=== PATIENT | male | born 1950 | race Caucasian/White ===

== ENCOUNTER → 2017-10-08 | Outpatient (REF) | payer MEDICARE ==
[2017-10-08 13:27] LABS: FOLATE 18.3 NG/ML; VITAMIN B12 LEVEL 357 PG/ML
[2017-10-14 00:07] LABS: VITAMIN B1 LEVEL WHOLE BLOOD 136.7 nmol/L (66.5-200.0); VITAMIN B6,PYRIDOXAL PHOSPHATE 10.7 ug/L (5.3-46.7); VITAMIN E(ALPHA TOCOPHEROL) 13.3 mg/L (9.0-29.0)
== END ==
LOC: M LABNEURO 09:47
DX: E53.8 Deficiency of other specified B group vitamins (principal); E51.9 Thiamine deficiency, unspecified; E03.9 Hypothyroidism, unspecified
CPT/HCPCS: 82746

== ENCOUNTER → 2020-08-30 | Outpatient (CLI) | payer MEDICARE ==
[~2020-08-30] MED LIST: PROHANCE 279.3MG/ML 15ML VIAL As Ordered ONE; PROHANCE 279.3MG/ML 5ML VIAL As Ordered ONE
--- NOTE | 2020-08-30 15:37 | REP ---
INDICATION: ABN IMAG LIVER BILIARY TRACT. COMPARISON: Comparison MRI study is from December 09, 2019. Comparison outside CT study November 12, 2019.. TECHNIQUE: Axial and coronal T1 and T2 weighted scans include spin echo, fast spin echo, gradient echo, in and out of phase, diffusion, and dynamically acquired sequential postcontrast images. Gadolinium enhancement dose is 18 mL of intravenous ProHance. FINDINGS: Patient's known abdominal aortic aneurysm is again seen status post aorto bi iliac stent graft placement. The aneurysm measures 7.0 x 7.1 cm in greatest anteroposterior by transverse dimension today. Previously on CT study, these dimensions are 7.2 x 7.0 cm. The aneurysm is felt to be unchanged in size. Bilateral fat containing adrenal adenomas are again seen with prominent signal loss on out of phase images and unchanged in size. There is no evidence of pleural effusion or abdominal ascites. No abnormality is noted in the gallbladder lumen or in the pancreas. The spleen is normal in size homogeneous in texture. No abnormality is noted on diffusion-weighted scans. There is a small cyst in the lower pole the right kidney measuring 1.5 cm in diameter. In the liver, T2 weighted scans demonstrate 3 or 4 tiny subcentimeter cysts in the right lobe. No focal hepatic mass lesion is seen on precontrast T2 or pre contrast T1 weighted images. On dynamically acquired sequential postcontrast images there are somewhat nodular appearing hypervascular areas in the right lobe and left lobe on the initial arterial phase study. The largest of these areas is inferiorly position in the right lobe measuring 1.7 cm in diameter. This is unchanged from the comparison study. This is the largest areas seen on the prior CT study. These are no longer apparent on 2 and 3 minutes post injection images. No new hypervascular lesion is appreciated. Study is otherwise unremarkable. IMPRESSION: Stable MRI findings with bilateral adrenal adenomas, a small right renal cyst, and hypervascular liver lesions all unchanged from prior study November 12, 2019 and December 09, 2019. Aorto bi-iliac stent graft placement for abdominal aortic aneurysm 7.0 x 7.1 cm in transverse dimension. This is also unchanged. <Electronically signed by Epifanio Olmedo > 08/30/20 [id number]
== END ==
LOC: M RAD 11:11
PROVIDERS: ATTEND Internal Medicine Medical Oncology
DX: D35.00 Benign neoplasm of unspecified adrenal gland (principal); N28.1 Cyst of kidney, acquired; K76.89 Other specified diseases of liver; I71.4 Abdominal aortic aneurysm, without rupture; Z95.828 Presence of other vascular implants and grafts
CPT/HCPCS: 74183; A9576

== ENCOUNTER → 2020-11-20 | Outpatient (CLI) | payer MEDICARE ==
[~2020-11-20] MED LIST changes: +AMLO1TAB25; +ATOR1TAB21; +CLOP75TA2; +OMEP-218; -PROHANCE 279.3MG/ML 15ML VIAL As Ordered ONE; -PROHANCE 279.3MG/ML 5ML VIAL As Ordered ONE
== END ==
LOC: M LABSMTC 09:48
PROVIDERS: ATTEND Anesthesiology
DX: Z01.818 Encounter for other preprocedural examination (principal); Z11.52 Encounter for screening for COVID-19

== ENCOUNTER 2020-11-24 08:46 | Day surgery (SDC) | payer MEDICARE ==
[~2020-11-24] VITALS: Ht 182.9 cm; Wt 85.2 kg
[~2020-11-24 08:46] MED LIST changes: +BSS IRR 500ML/OMIDRIA 4ML IRR BAG (OR ONLY) As Ordered ONE; +BUPIVACAINE HCL 0.5% 10ML VIAL As Ordered ONE; +CEFUROXIME 1MG/0.1ML INTRACAMERAL INJ As Ordered ONE; +DUOVISC (0.50ML VISCOAT/0.85ML PROVISC) OPHTH KIT As Ordered ONE; +LIDOCAINE 1% SDV 5ML VIAL As Ordered ONE; +PROPARACAINE 0.5% OPHTH SOL 15ML OD ONE
[2020-11-24] MEDS: TROPICAMIDE 1% OPHTH SOLN 2ML OD SCH ×3 (09:14→09:21)
[2020-11-24] MEDS: PHENYLEPHRINE 2.5% OPHTH SOL 2ML OD SCH ×3 (09:14→09:21)
[2020-11-24] MEDS: OFLOXACIN 0.3 % (OCUFLOX) OPTH SOL 5ML OD SCH ×3 (09:14→09:20)
[2020-11-24] MEDS ORDERED: MIDAZOLAM INJ 2MG/2ML VIAL (J2250 PER 1MG) As Ordered ONE (09:38)
[2020-11-24] MEDS ORDERED: PHENYLEPHRINE 1.5%/LIDOCAINE 1% INTRAOCULAR 0.8ML SYRINGE As Ordered ONE (10:39)
[2020-11-24 10:57] VITALS: BP 127/71
--- NOTE | 2020-11-28 19:14 | RO ---
OPERATIVE NOTE DATE OF OPERATION: 11/24/2020 PREOPERATIVE DIAGNOSIS: Visually significant cataract, right eye. POSTOPERATIVE DIAGNOSIS: Visually significant cataract, right eye. PROCEDURE: Phacoemulsification, cataract extraction and implantation of intraocular lens, right eye. SURGEON: Oscar Garcia M.D. ANESTHESIA: MAC and topical. COMPLICATIONS: None. ESTIMATED BLOOD LOSS: 0 mL. CONDITION: Excellent to recovery room with shield over right eye. LENS: AcrySof model SN60AT, power 21.0 diopters. [employer] energy is 5.93 CDE. INDICATIONS FOR PROCEDURE: The patient experienced decreased vision in the right eye associated with cataract formation and this was confirmed on slit-lamp exam. Informed consent was obtained for the above procedures. PROCEDURE NOTE: Prior to entering the operating room, the patient was identified. The right eye was marked. He was wheeled supine to the OR suite positioned on a stretcher. Anesthesia was initiated. Topical Tetracaine was placed. He was prepped with 5% povidone iodine to lids, lashes and periocular face. The lashes were taped with Tegaderm. A speculum was placed in the right eye. A 1 mm side port was created at the 11:30 position. 1% preservative free lidocaine was injected. Viscoat was injected. A 2.6 mm stepped, grooved clear corneal incision was made temporally. A bent cystitome needle and Utrata forceps fashioned a continuous curvilinear capsulorhexis. BSS was used to hydrodissect. The lens was found to rotate freely. It was phacoemulsified using [id number] technique. Residual cortex was removed with the IA. Provisc was injected to expand the capsular bag. The lens was injected using lens delivery system and positioned with the Kelvin hook. Residual viscoelastic was removed with the IA. BSS was used to hydrate the clear corneal wound. Antibiotic prophylaxis was injected. The speculum was removed from the eye. A shield was taped over the eye. The patient was taken in excellent condition to the recovery room.
== END 2020-11-24 11:10 | disposition home or self-care (01) ==
LOC: M SDC 08:46
PROVIDERS: ATTEND Ophthalmology
DX: H25.11 Age-related nuclear cataract, right eye (principal); I10 Essential (primary) hypertension; I71.4 Abdominal aortic aneurysm, without rupture; E78.5 Hyperlipidemia, unspecified; J44.9 Chronic obstructive pulmonary disease, unspecified; Z79.899 Other long term (current) drug therapy; F17.290 Nicotine dependence, other tobacco product, uncomplicated
CPT/HCPCS: 66984; J1097; J2250; V2632

== ENCOUNTER → 2020-12-18 | Outpatient (CLI) | payer MEDICARE ==
[~2020-12-18] MED LIST changes: -AMLO1TAB25; +AMLO1TAB25 PO; -ATOR1TAB21; +ATOR1TAB21 PO; -BSS IRR 500ML/OMIDRIA 4ML IRR BAG (OR ONLY) As Ordered ONE; -BUPIVACAINE HCL 0.5% 10ML VIAL As Ordered ONE; -CEFUROXIME 1MG/0.1ML INTRACAMERAL INJ As Ordered ONE; -CLOP75TA2; +CLOP75TA2 PO; -DUOVISC (0.50ML VISCOAT/0.85ML PROVISC) OPHTH KIT As Ordered ONE; -LIDOCAINE 1% SDV 5ML VIAL As Ordered ONE; -OMEP-218; +OMEP-218 PO; -PROPARACAINE 0.5% OPHTH SOL 15ML OD ONE
== END ==
LOC: M LABSMTC 09:34
PROVIDERS: ATTEND Anesthesiology
DX: Z01.812 Encounter for preprocedural laboratory examination (principal); Z20.822 Contact with and (suspected) exposure to COVID-19

== ENCOUNTER 2020-12-22 07:36 | Day surgery (SDC) | payer MEDICARE ==
[~2020-12-22] VITALS: Ht 182.9 cm; Wt 84.4 kg
[~2020-12-22 07:36] MED LIST changes: +BSS IRR 500ML/OMIDRIA 4ML IRR BAG (OR ONLY) As Ordered ONE; +CEFUROXIME 1MG/0.1ML INTRACAMERAL INJ As Ordered ONE; +DUOVISC (0.50ML VISCOAT/0.85ML PROVISC) OPHTH KIT As Ordered ONE; +MIDAZOLAM INJ 2MG/2ML VIAL (J2250 PER 1MG) As Ordered ONE; +PHENYLEPHRINE 1.5%/LIDOCAINE 1% INTRAOCULAR 0.8ML SYRINGE As Ordered ONE; +PROPARACAINE 0.5% OPHTH SOL 15ML OS ONE; +fentaNYL 100 MCG/2 ML INJECTION (J3010) As Ordered ONE
--- OUTSIDE RECORDS SUMMARY | 2020-12-22 07:40 | CCD | Clinical Summary ---
Author Author Local Voice [facility] Organization [facility] Address [address] [place] [address] Phone Care Team Providers Care Alteration Specialist Name Role Phone Parrish YI, Dk PP [phone] Reason for Referral Date Encounter Description Provider Reason for Referral 11/14/20 Dk YI Request Consul tation By Specialist Reason for Visit and Chief Complaint The Chief Complaint is: pt amb to room 21 for pre op clearence. pt advises no c oncerns at this time. Sunil MALLOY Problems Includes: Problems addressed during this encounter and other active Problems Current Visit Onset Date - Time Resolved Date - Time Provider C ondition Status Cataract - Senile 11/14/2020 - 12:00AM Dk Mcmahan Active Nicotine Dependence 07/18/2020 - 2:28PM Loren Osman Active Note: continues to smoke 3-4 cigars/daily 07/18/20; quit smoking cigs 2019 after smoking >30 years Peripheral Vascular Disease 01/05/2020 - 12:00AM Amy Thurman DO Active Note: s/p right fem/pop bypa ss 12/14/19 Obesity 12/02/2018 - 12:00AM Loren Thurman DO Acti ve Vascular Dementia 07/14/2018 - 12:00AM Madina Mcmahan Active Note: possible vascular petra ntia vs. ETOH induced cognitive impairmentseen by Neurology, Dr. 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 8 - 12:00AM Loren L Ray DO Active Hyperlipidemia 05/02/2017 - 12:00AM Loren L Ray DO Ac tive Nicotine Dependence 03/19/2017 - 12:00AM Unknown - Unknown Loren L Ray DO Resolved Hypertension (Systemic) 03/19/2017 - 12:00AM Loren L Ray DO Active Alcohol Dependence (Alcoholism) 03/19/2017 - 12:00AM A phyllis L Ray DO Active Note: 1-2 beers 1 or 2 times / week; 06/18/19 Past Visits Onset Date - Time Resolved Date - Time Provider Co ndition Status Difficulty Breathing (Dyspnea) 07/18/2020 - 3:01PM [place] nda L Ray DO Active Retinopathy Proliferative 05/29/2020 - 1:07PM Madina Cramer PICTURE FRAMER Active Note: right eye; following w ith Opthamology Retinal Detachment 05/29/2020 - 1:05PM Loren L Ray DO Active Note: with PVR; right eye; s /p vitrectomy 05/31/20 Visit For: Screening Malignant Neoplasm Respiratory 12/07/2019 - 12:00AM Loren L Ray DO Active Note: refused low dose CT sc an 12/07/19; refused low dose CT 07/18/20 Polyps Colon 05/13/2018 - 12:00AM Madina Cramer PICTURE FRAMER Act flakito Note: Repeat colonoscopy 07/02 022 Arthralgia - Pelvis / Hip / Femur Right 05/13/2018 - 12:00AM Loren L Ray DO Active Acute Renal Failure 12/16/2017 - 12:00AM Loren L Ray DO Active Vasovagal Syncope 12/16/2017 - 12:00AM Loren L Ray DO Active Note: on 12/14/17 20 min aft er bee sting Hearing Loss 11/12/2017 - 12:00AM Loren L Ray DO Acti ve Note: has appt to see audiol ogy Aortic Stenosis 10/07/2017 - 12:00AM Loren L Ray DO A ctive Note: mild on ECHO 10/06/17 Stroke - Lacunar Syndrome Multiple Infarcts 08/28/2017 - 12:00AM Loren L Ray DO Active Note: one in left basal gang aleyda; see MRI from 08/27/17 Urinary Retention 08/28/2017 - 12:00AM Loren L Ray DO Active Carotid Artery Stenosis Without Cerebral Infarction 08/06/2017 - 12:00AM Loren L Ray DO Active Note: less than 50% bilatera lly on doppler 08/11/17 Anemia 07/31/2017 - 12:00AM Loren L Ray DO Acti ve Atherosclerosis Renal Artery 07/22/2017 - 12:00AM [place] Ray DO Active Note: s/p angioplasty w/ bozena nt placement right renal artery 06/21/17 Colon Screening 05/02/2017 - 12:00AM Loren L Ray DO A ctive Note: last colonoscopy , needs repeat in 3 years Aneurysm of Abdominal Aorta Without Rupture 03/19/2017 - 12:00AM Loren L Ray DO Active Note: 6.6cm with noted leak s/p endovascular repair; suppose to follow-up with Dr. Ramos on 03/28/17 Aneurysm of Iliac Artery 03/19/2017 - 12:00AM Loren L Ray DO Active Note: s/p bilateral endovasc ular repair Plan of Treatment Future Appointments Date Time Location Provider [facility] 12/04/2020 2:40PM [facility] Dkdidi YI Chronic Disease Follow-up 05/16/2021 9:40AM [facility] Dkdidi CRANDALLP - Instructions for patient Continue with current medications Once labs come back letter will be sent to surgeon for preop clearance f/u in 6 months for chronic issues - Return to the clinic if condition wors ens or new symptoms arise Assessments Includes: Assessments from this encounter - Visit for: preoperative exam - Senile cataract - Hypertension - Peripheral vascular disease - Chronic obstructive pulmonary disease - Hyperlipidemia - Obesity - Adrenal cortical adenoma - Vascular dementia Memory is currently stable and patient is no longer seeing neurology - Late effects of cerebral infarction: c ognitive deficits - Alcoholism - Nicotine dependence Instructions Includes: Instructions from this encounter Instructions to patient Instructions for patient ~Continue with current medications ~Once labs come back letter will be sent to surgeon for preop clearance ~f/u in 6 months for chronic issues Education and Decision Aids were provide d during visit for: Patient education and counseling provid ed for chronic care goals and plan Patient appeared to understand therapeut ic regimen for Medications and Plan of Care; Assessed using Teach-back Method Medical Equipment - Implanted Devices Includes: Current DevicesNo Medical Equipment Recorded Medications Includes: Medications discussed during this encounter and other current Medicati ons Discontinued / Stopped on this date Rio Gilbert DO on 07/18/2020 Lipitor 20 MG Oral Tablet Provider: Loren Thurman DO Diagnosis: Thiamine Mononitrate 100 MG Oral Tablet Provider: Diagnosis: Folic Acid 1 MG Oral Tablet Provider: Diagnosis: [facility] Vitamin B12 1000MCG Oral Tablet Prov ider: Diagnosis: Current Medications (continue as prescribed) Atorvastatin Calcium 20 MG Oral Tablet 10/31/2020 P rovider: Diagnosis: Omeprazole 20 MG Oral Capsule Delayed Release 10/16/2020 - 0 04/14/2021 Provider: Dk YI Diagnosis: once a day amLODIPine Besylate 10 MG Oral Tablet 06/21/2020 - Provider: Loren Thurman DO Diagnosis: once a day Clopidogrel Bisulfate 75 MG Oral Tablet 05/22/2020 - 021 Provider: Madina Cramer NP Diagnosis: once a day Colace 100 MG Oral Capsule 12/23/2019 Provider: Diagnosis: Ventolin HFA 108 (90 Base)MCG/ACT Inhalation Aerosol Solutio n 12/16/2017 Provider: Diagnosis: [facility] Iron 325 (65 Fe)MG Oral Tablet 08/06/2017 Provi richard: Loren Thurman DO Diagnosis: Anemia, unspecified twice a day Daily Multiple Vitamins Oral Tablet 03/19/2017 Prov ider: Diagnosis: Medications Administered Includes: Administered Medications from this encounterNo Administered Medications Recorded Vital Signs Includes: Vital Signs from this encounter Vital Name 11/14/2020 11:24A Blood Pressure Sitting L 120/76 BP Cuff Size Regular Pulse Rate-Sitting (bpm) 96 Pulse Rhythm Regular Respiration Rate (breaths/min) 22 Temp-Temporal 98.1 Weight (lb) 192 Pain Level 3 Oxygen Saturation (%) 97 Flow Rate (l/min) (None (Room Air)) FiO2 (%) 21 Results Includes: Results discussed during this encounter CBC w/ Auto Diff [facility] Ordered by Dk YI on 11/14/[address] [place] [address], [address] Collected: 11/15/2020 Reported: 11/15/2020 13:27 tel :[phone] BASO # (AUTO) 0.09 10\^3/uL (0.00-0.20) N (Normal) Note: Responsible Observer: BASO # (AUTO ) BASO # (AUTO) 100.1500 (A) BASO % (AUTO) 1.1 % (0.0-2.0) N (Normal) Note: Responsible Observer: BASO % (AUTO ) BASO % (AUTO) 100.1250 (A) EOS # (AUTO) 0.09 10\^3/uL (0.00-1.10) N (Normal) Note: Responsible Observer: EOS # (AUTO) EOS # (AUTO) 100.1450 (A) EOS % (AUTO) 1.1 % (0.0-11.0) N (Normal) Note: Responsible Observer: EOS % (AUTO) EOS % (AUTO) 100.1200 (A) GRAN # (AUTO) 5.23 10\^3/uL (1.50-6.50) N (Normal) Note: Responsible Observer: GRAN # (AUTO ) GRAN #(AUTO) 100.1325 (A) GRAN % (AUTO) 65.2 % (42.0-75.0) N (Normal) Note: Responsible Observer: GRAN % (AUTO ) GRAN % (AUTO) 100.1000 (A) HEMATOCRIT 44.8 % (41.0-53.0) N (Normal) Note: Responsible Observer: HCT HEMATOCR IT 100.0400 (A) HEMOGLOBIN 15.3 G/DL (13.0-17.5) N (Normal) Note: Responsible Observer: HGB HEMOGLOB IN 100.0300 (A) IG # (AUTO) 0.0 10\^3/uL (<0.5) None Note: Responsible Observer: IG # (AUTO) IG # (AUTO) 100.1260 (A) IG % (AUTO) 0.4 % (1.00-5.00) None Note: Responsible Observer: IG % (AUTO) IG % (AUTO) 100.1255 (A) LYMPH # (AUTO) 1.7 k/uL (1.0-5.0) N (Normal) Note: Responsible Observer: LYMPH # (AUT O) LYMPH # (AUTO) 100.1350 (A) LYMPH % (AUTO) 21.5 % (20.0-51.0) N (Normal) Note: Responsible Observer: LYMPH % (AUT O) LYMPH % (AUTO) 100.1100 (A) MCH 30.7 PG (27.0-34.0) N (Normal) Note: Responsible Observer: MCH MCH 100 .0600 (A) MCHC 34.2 G/DL (32-36) N (Normal) Note: Responsible Observer: MCHC MCHC 1 00.0650 (A) MCV 90.0 FL (80.0-100.0) N (Normal) Note: Responsible Observer: MCV MCV 100 .0550 (A) MONO # (AUTO) 0.86 k/uL (0.20-1.50) N (Normal) Note: Responsible Observer: MONO # (AUTO ) MONO # (AUTO) 100.1400 (A) MONO % (AUTO) 10.7 % (2.0-15.0) N (Normal) Note: Responsible Observer: MONO % (AUTO ) MONO% (AUTO) 100.1150 (A) MPV 11.1 FL (8.7-13.2) N (Normal) Note: Responsible Observer: MPV MPV 100 .0950 (A) PLATELET COUNT 210 10\^3/uL (130-400) N (Normal) Note: Responsible Observer: PLT PLATELET COUNT 100.0850 (A) RED BLOOD COUNT 4.98 10\^6/uL (4.30-5.80) N (Normal) Note: Responsible Observer: RBC RED BLOO D COUNT 100.0250 (A) RDW 14.2 % (11.5-14.5) N (Normal) Note: Responsible Observer: RDW RDW 100 .0700 (A) WHITE BLOOD COUNT 8.03 10\^3/uL (4.00-10.50) N (Normal) Note: Responsible Observer: WBC WHITE BL OOD COUNT 100.0150 (A) Reviewed by Dk YI on 11/16/19 21; All test results are final unless otherwise noted. COMPREHENSIVE METABOLIC PANEL [facility] Ordered by Dk YI on 11/14/[address] [place], [address] Collected: 11/15/2020 Reported: 11/15/2020 13:55 tel :[phone] ALB/GLOB RATIO 1.8 G/DL (1.0-3.0) N (Normal) Note: Responsible Observer: A/G RATIO AL B/GLOB RATIO 300.4100 (A) ALBUMIN 4.3 G/DL (3.0-5.1) N (Normal) Note: Responsible Observer: ALB ALBUMIN 300.3900 (A) ALKALINE PHOSPHATASE 101 U/L (40-140) N (Normal) Note: Responsible Observer: ALK PHOS ALK CHELSEA PHOSPHATASE 300.3110 (A) ALT 13 U/L (5-48) N (Normal) Note: Responsible Observer: ALT/SGPT ALT 300.3100 (A) AST 13 U/L (5-40) N (Normal) Note: Responsible Observer: AST/SGOT AST 300.3050 (A) BUN/CREAT RATIO 13 (8-36) N (Normal) Note: Responsible Observer: BUN/CREAT RA GABBIE BUN/CREAT RATIO 300.0450 (A) BILIRUBIN,TOTAL 0.4 MG/DL (0.1-1.3) N (Normal) Note: Responsible Observer: TOTAL BILI T OTAL BILIRUBIN 300.2700 (A) BLOOD UREA NITRO 17 MG/DL (7-25) N (Normal) Note: Responsible Observer: BUN BLOOD UR EA NITROGEN 300.0350 (A) CA 9.3 MG/DL (8.7-10.5) N (Normal) Note: Responsible Observer: CA CALCIUM 300.2200 (A) CHLORIDE 108 MEQ/L (94-110) N (Normal) Note: Responsible Observer: CL CHLORIDE 300.0200 (A) CARBON DIOXIDE 26 MEQ/L (22-33) N (Normal) Note: Responsible Observer: CO2 CARBON D IOXIDE 300.0250 (A) CREATININE 1.3 MG/DL (0.6-1.4) N (Normal) Note: Responsible Observer: CREAT CREATI NINE 300.0400 (A) ANION GAP 10 (5-16) N (Normal) Note: Responsible Observer: ANION GAP AN ION GAP 300.0300 (A) GFR 54.6 ML/MIN None Note: Stage G3a - Mildly to moderately decreased kidney function The GFR is an estimate of the Glomerular Filtration Rate. It is an aid to assess a patient's renal function. It is not a conclusive diagnosis of kidney disease. GFR normal is >=90 The MDRD GFR calculation is considered valid between the ages of 18 and 75 years only.Responsible Observer: GFR GFR 300.0410 (A) GLOBULIN 2.4 G/DL (1.5-3.5) N (Normal) Note: Responsible Observer: GLOB GLOBULI N 300.4050 (A) GLUCOSE 95 MG/DL (70-100) N (Normal) Note: Responsible Observer: GLU GLUCOSE 300.0500 (A) POTASSIUM 3.9 MEQ/L (3.5-5.3) N (Normal) Note: Responsible Observer: K POTASSIUM 300.0150 (A) SODIUM 140 MEQ/L (135-145) N (Normal) Note: Responsible Observer: NA SODIUM 3 00.0100 (A) TOTAL PROTEIN 6.7 G/DL (5.9-8.3) N (Normal) Note: Responsible Observer: TP TOTAL PRO TEIN 300.3750 (A) Reviewed by Dk Senior SCREEN STRETCHER on 11/16/19 21; All test results are final unless otherwise noted. History of Present Illness Includes: History of Present Illness from this encounter Rashaun Barba is a 70 year old male. - Allergy list reviewed - Medication reconciliation performed - No fever - No chills - No headache - No chest pain or discomfort - No pounding heartbeat - No cough - No wheezing - No nausea - No vomiting - No diarrhea - No musculoskeletal symptoms - No dizziness - No skin symptoms - - No request for consultation by special ist - No previous emergency room visit Pt presents for preop clearance of R cataract surgery scheduled 11/24/20 with [facility] eye physicians and surgeons Pt also is having AHR today with med hx significant for: Anemia/COPD/HTN/PVD Pt states that he is still smoking 4 small cigars daily, has a couple of beers 2-3 days/week Pt denies any issues with GERD Pt overall feels he is doing well Social History Description Last Updated Smoking status 11/14/2020 : Current everyday smoker Procedures and Surgical History Includes: Procedures from this encounter Procedures Code Diagnosis Performing Provider Service Location Service Date Transition in care medication list update Summary provided electronically in CCDA format & reasonable certainty of receipt Medical History Includes: Medical History addressed during this encounterNo Medical History Recorded Family History Includes: Family History addressed during this encounterNo Family History Recorded Review of Systems Includes: Review of Systems from this encounterNo Review of Systems Recorded Mental Status Includes: Mental Status from this encounter Description Cognitive functioning was normal Oriented to time, place, and person Thought processes were not impaired The thought content revealed no impairme nt Functional Status Includes: Functional Status from this encounterNo Functional Status Recorded Physical Exam Includes: Physical Exam from this encounter Skin: -no skin lesions -the skin general appearance was normal Eyes: -the extraocular movements were normal -PERRLA Ears, Nose, Throat: -external auditory meatus normal -tympanic membrane was normal -no nasal discharge seen -no sinus tenderness -the tonsils showed no abnormalities -the oropharynx was normal Neck: -the neck demonstrated no decrease in suppleness -the thyroid showed no abnormalities -no cervical mass was seen Lymph Nodes: -the supraclavicular lymph nodes were not enlarged Chest: -no thoracic asymmetry was noted Lungs: -normal breath sounds/voice sounds Cardiovascular System: -murmur heard Holosystolic RSB -posterior tibialis pulses were normal -dorsalis pedis pulses were normal -no pitting edema -no nonpitting edema -heart rate and rhythm normal -no bradycardia present -no tachycardia present -CUSTOMER CARE VOICE CONSULTANT of toes Abdomen: -the bowel sounds were normal -abdominal non-tender -no mass was palpated in the abdomen -the liver was not enlarged -the spleen was not enlarged Back: -no costovertebral angle tenderness -Back: normal Psychiatric Exam: -the mood was euthymic -thought processes were not impaired -the thought content revealed no impairment Neurological System: -cognitive functioning was normal -the cranial nerves were normal -no sensory exam abnormalities were noted -gait and stance were normal -the deep tendon reflexes were normal -oriented to time, place, and person General Status: -in no acute distress -well developed -well nourished Musculoskeletal System: -overall findings were normal Vital Signs: -current vital signs reviewed Immunizations Includes: Immunizations addressed during this encounterNo Immunizations Recorded Allergies Includes: Active Allergies Substance Type Reaction Onset Date - Time Resolved Date - Ti me Status Lipitor Allergy 11/14/2020 - 11:23AM Acti ve Note: renal failure Encounters Encounter Provider Location Date Check-In Time Check-Out Time D iagnosis Medical Clearance Dkdidi Senior [facility] 11/14/2020 11:02AM 12:17PM Visit For: Preoperative Exam, Vascular Dementia, Obesity, Adrenal Neoplasm Benign Cortical Adenoma, Late Effects of Cerebral Infarction Cognitive Deficits, Alcohol Dependence (Alcoholism), Chronic Obstructive Pulmonary Disease, Hyperlipidemia, Hypertension (Systemic), Nicotine Dependence, Peripheral Vascular Disease, Cataract - Senile Insurance Includes: Active Insurance Policies Plan Name Member ID Group # Subscriber Relationship Effective Da pedro 1 - [facility] Medicare Advantage [id number] Rashaun Grossdoris Self 05/01/2017 - Unknown Advance Directives Includes: Current Advance Directives Directive Pat Aware Third Libertarian Effective Date Reviewed Status packet given Pt Bill of Rights, Priv Prac, Ad Dir Yes 12/07/2019 Current and Verified Note: Pt declined AD packet Ebola Screening Performed Yes 12/07/2019 Current and Verified Note: Within the last month, have you traveled outside of the [place]? - NO Health Concerns Includes: Health Concerns addressed during this encounterNo Active Health Concerns Recorded Goals Includes: Goals addressed during this encounterNo Active Goals Recorded Interventions Includes: Interventions addressed during this encounterNo Interventions Recorded Evaluations & Outcomes Includes: Evaluations & Outcomes addressed during this encounterNo Outcomes Recorded
--- OUTSIDE RECORDS SUMMARY | 2020-12-22 07:40 | CCD ---
Author Author Terry Paz MD [facility] Organization Terry Paz MD [facility] Address [address] [place] [phone] Phone Care Team Providers Care Commercial Banker Name Role Phone Jackson MERRITT, JULIA, Terry Edge Unavailable [phone] Loren Thurman DO PP [phone] Reason for Referral No Reason for Referral Recorded Problems Includes: Active, inactive, and resolved Problems All Visits Onset Date - Time Resolved Date - Time Provider Co ndition Status Partial Retinal Detachment with Multiple Defects 05/26/2020 - 12 :00AM Terry Paz MD, FACS Active Essential Hypertension 05/01/2020 - 12:00AM Terry Garcia MD, FACS Active Retinopathy Hypertensive Both Eyes 05/01/2020 - 12:00AM Terry Paz MD, FACS Active Cataract Senile Nuclear 05/01/2020 - 12:00AM Terry Paz MD, FACS Active Dry Eye Syndrome Both Eyes 05/01/2020 - 12:00AM Terry Paz MD, FACS Active Tobacco Use 05/01/2020 - 12:00AM Terry Paz MD, FACS Active Vitreous Disorders Degeneration 05/01/2020 - 12:00AM Terry Paz MD, FACS Active Plan of Treatment Future Appointments Date Time Location Provider Extracapsular cataract removal w/IOL implant 11/24/2020 8:4 [address] [facility] Terry Paz MD, JULIA SAME DAY POST OP 11/24/2020 2:40PM Terry Paz MD [facility] Terry Paz MD, FACS 1 Year Follow-Up 05/08/2021 7:30AM Terry Paz MD [facility] Terry Paz MD, FACS Assessments Includes: Assessments for all patient encounters Findings Encounter Date Dry eye syndrome of both eyes TRIAGE NEW PATIENT with Terry Paz MD, FACS 05/01/2020 Essential hypertension TRIAGE NEW PATIENT with Terry Angulo MD, FACS 05/01/2020 Hypertensive retinopathy of both eyes TRIAGE NEW PATIE NT with Terry Cook MD, FACS 05/01/2020 Nuclear senile cataract TRIAGE NEW PATIENT with Terry Estrada MD, FACS 05/01/2020 Tobacco use TRIAGE NEW PATIENT with Terry begum MD, FACS 05/01/2020 Vitreous degeneration TRIAGE NEW PATIENT with Terry Sinclair MD, FACS 05/01/2020 Instructions Instructions not supported for this document typeNo Instructions Recorded Medical Equipment - Implanted Devices Includes: Current and historical DevicesNo Medical Equipment Recorded Medications Includes: Current and historical Medications Current Medications (continue as prescribed) Clopidogrel 75 mg Oral Tablet 05/01/2020 Provider: Diagnosis: Amlodipine 10 MG Oral Tablet 05/01/2020 Provider: Diagnosis: Omeprazole 20 MG Oral Capsule Delayed Release 05/01/2020 Provider: Diagnosis: Atorvastatin 20 MG Oral Tablet 05/01/2020 Provider: Diagnosis: Vitamin B12 2500 MCG Oral Tablet 05/01/2020 Provide r: Diagnosis: Folic Acid 1 MG Oral Tablet 05/01/2020 Provider: Diagnosis: Medications Administered Includes: Administered Medications in patient's chartNo Administered Medications Recorded Vital Signs Includes: Vital Signs from 11/10/2019 through 11/09/2020No Vital Signs Recorded For Specified Dates Results Includes: Results from 11/10/2019 through 11/09/2020No Results Recorded For Specified Dates History of Present Illness History of Present Illness not supported for this document typeNo History of Present Illness Recorded Social History Description Last Updated Not using drugs 05/26/2020 A social drinker 05/01/2020 Tobacco use 05/01/2020 Current smoker 05/01/2020 Smoking status : Current everyday smoker 05/01/2020 Procedures and Surgical History Includes: Procedures from 11/10/2019 through 11/09/2020 Procedures Code Diagnosis Performing Provider Service Location Service Date Intermediate Eye Exam Established Patient 34440 Retinal detachment with multiple breaks, right eye Terry Paz MD, JULIA Paz MD [facility] 05/26/2020 Medical Eye Exam [id number] Age-related nuclear cataract, bilateral, Dry eye syndrome of bilateral lacrimal glands, Hypertensive retinopathy, bilateral, Nicotine dependence, cigarettes, uncomplicated Terry Paz MD, JULIA Cook MD [facility] 05/01/2020 Surgical History Last Updated Surgical / procedural history AAA repai r with c stents 2017, Renal Stent 2017, Bilateral Femoral Artery Replacement 201905/01/2020 Medical History Includes: Medical History in patient's chart Description Last Updated Currently wearing eyeglasses 05/26/2020 No recent change in medical history 05/26/2020 History of hypertension 05/01/2020 History of hyperlipidemia 05/01/2020 Reported medical history 05/01/2020 Family History Includes: Family History in patient's chart Description Last Updated Paternal history of arthritis 05/26/2020 Paternal history of cataract 05/26/2020 Paternal history of heart disease 05/26/2020 Paternal history of hypertension 05/26/2020 Review of Systems Review of Systems not supported for this document typeNo Review of Systems Recorded Mental Status Mental Status not supported for this document typeNo Mental Status Recorded Functional Status Functional Status not supported for this document typeNo Functional Status Recorded Physical Exam Physical Exam not supported for this document typeNo Physical Exam Recorded Immunizations Includes: Immunizations in patient's chartNo Immunizations Recorded Allergies Includes: Active, inactive, and resolved Allergies Substance Type Reaction Onset Date - Time Resolved Date - Ti me Status Lipitor Allergy 05/01/2020 - 1:05PM Activ e Encounters Includes: Encounters from 11/10/2019 through 11/09/2020 Encounter Provider Location Date Check-In Time Check-Out Time D iagnosis Cataract Evaluation Terry Paz MD [facility] 10/06/2020 1:50 PM 3:32PM TRIAGE URGENT Terry Paz MD, JULIA Paz MD [facility] 05/26/2020 1:19PM 3:11PM TRIAGE NEW PATIENT Terry Paz MD, JULIA Paz MD [facility] 05/01/2020 12:42PM 1:46PM Dry Eye Syndrome Bot h Eyes, Tobacco Use, Retinopathy Hypertensive Both Eyes, Vitreous Disorders Degeneration, Cataract Senile Nuclear, Essential Hypertension Insurance Includes: Active Insurance Policies Plan Name Member ID Group # Subscriber Relationship Effective Da pedro 1 - [employer] Advantage [id number] Rashaun Marcos ile Self Advance Directives Includes: Current Advance DirectivesNo Advance Directives Recorded Health Concerns Includes: Active Health ConcernsNo Active Health Concerns Recorded Goals Includes: Active GoalsNo Active Goals Recorded Interventions Includes: Interventions for active GoalsNo Interventions Recorded Evaluations & Outcomes Includes: Evaluations & Outcomes for active GoalsNo Outcomes Recorded
[2020-12-22] MEDS: OFLOXACIN 0.3 % (OCUFLOX) OPTH SOL 5ML OS SCH ×3 (08:14→08:31)
[2020-12-22] MEDS: PHENYLEPHRINE 2.5% OPHTH SOL 2ML OS SCH ×3 (08:14→08:31)
[2020-12-22] MEDS: TROPICAMIDE 1% OPHTH SOLN 2ML OS SCH ×3 (08:14→08:31)
[2020-12-22 10:45] VITALS: BP 140/76
--- NOTE | 2020-12-22 13:54 | ROOPDOC ---
[facility] Report Of Operation Report of Operation PREPROCEDURE DIAGNOSES: Mature cataract left eye. POSTPROCEDURE DIAGNOSES: Same. PROCEDURE PERFORMED: Phacoemulsification cataract extraction implantation intraocular lens left eye. SURGEON: Oscar Wiseman MD BOX SORTER: None ANESTHESIA: MAC. ESTIMATED BLOOD LOSS: Approximately 0 cc mL. COMPLICATIONS: None. LENS: 21.5. diopters SPECIMENS REMOVED: None INDICATIONS: Patient experienced decreased vision associated with cataract formation. Slit-lamp examination confirmed the diagnosis. Informed consent was obtained for removal of the cataract and placement of intraocular lens. PROCEDURE NOTE: Patient was identified in the holding room and the operative eye was marked. Patient was wheeled spine the OR suite and positioned on the stretcher. The lids lashes and periocular face of the operative eye were prepped with 5% povidone iodine. The lashes were taped with a Tegaderm dressing. A speculum was placed in the operative eye. 1 mm side-port was created. 1% preservative-free lidocaine was injected. Viscoat was injected. A 2.6 mm stepped groove clear cornea incision was made temporally. A bent cystotome needle and Utrata forceps were used to fashion a continuous cu rvilinear capsulorhexis. BSS was used to hydrodissect. The lens was found to rotate freely. The lens was phacoemulsified using a divide and conquer technique. Residual cortex was removed with the I/A. Provisc was injected to expand the capsular bag. The lens was injected using the lens delivery system and positioned with a Kelvin hook. Residual viscoelastic was removed with the I/A. BSS was used to hydrate the corneal wound. Antibiotic prophylaxis was injected. The speculum was removed from the eye. A shield was taped over the eye. The patient was sent in excellent condition to the recovery room with a shield. OSCAR WISEMAN M.D. Dec 22, 2020 13:54
== END 2020-12-22 10:55 | disposition home or self-care (01) ==
LOC: M SDC 07:36
PROVIDERS: ATTEND Ophthalmology
DX: H25.12 Age-related nuclear cataract, left eye (principal); I10 Essential (primary) hypertension; E78.5 Hyperlipidemia, unspecified; Z95.820 Peripheral vascular angioplasty status with implants and grafts; M47.899 Other spondylosis, site unspecified; F17.290 Nicotine dependence, other tobacco product, uncomplicated; Z79.899 Other long term (current) drug therapy; Z79.02 Long term (current) use of antithrombotics/antiplatelets
CPT/HCPCS: 66984; J1097; J2250; J3010; V2632

== ENCOUNTER → 2024-06-24 | Outpatient (REF) | payer MEDICARE, OTHER ==
[~2024-06-24] MED LIST changes: -BSS IRR 500ML/OMIDRIA 4ML IRR BAG (OR ONLY) As Ordered ONE; -CEFUROXIME 1MG/0.1ML INTRACAMERAL INJ As Ordered ONE; -DUOVISC (0.50ML VISCOAT/0.85ML PROVISC) OPHTH KIT As Ordered ONE; -MIDAZOLAM INJ 2MG/2ML VIAL (J2250 PER 1MG) As Ordered ONE; +OMEP-173 PO; -OMEP-218 PO; -PHENYLEPHRINE 1.5%/LIDOCAINE 1% INTRAOCULAR 0.8ML SYRINGE As Ordered ONE; -PROPARACAINE 0.5% OPHTH SOL 15ML OS ONE; -fentaNYL 100 MCG/2 ML INJECTION (J3010) As Ordered ONE
[2024-06-24 08:53] LABS: HEMATOCRIT 42.6 % (42.0-52.0); HEMOGLOBIN 13.6 g/dl (13.5-17.5); MEAN CORPUSCULAR HEMOGLOBIN 28.6 pg (27.0-33.0); MEAN CORPUSCULAR HGB CONC 31.9 g/dl (32.0-36.5); MEAN CORPUSCULAR VOLUME 89.7 fl (80.0-96.0); PLATELET COUNT, AUTOMATED 182 10^3/uL (150-450); RED BLOOD COUNT 4.75 10^6/uL (4.30-6.10); WHITE BLOOD COUNT 9.8 10^3/uL (4.0-10.0)
[2024-06-24 09:22] LABS: ALBUMIN 3.5 G/DL (3.2-5.2); BILIRUBIN,TOTAL 0.5 MG/DL (0.3-1.2); CALCIUM LEVEL 9.2 MG/DL (8.3-10.6); CHOLESTEROL RISK RATIO 2.76 (<5); CREATININE FOR GFR 1.42 MG/DL (0.70-1.30); GLOMERULAR FILTRATION RATE 52.2 (>42); HDL CHOLESTEROL 58.9 MG/DL (>40); LDL CHOLESTEROL 76.9 MG/DL (<100); NON-HDL-C 104.1 MG/DL; POTASSIUM SERUM 4.6 MMOL/L (3.5-5.1); TOTAL PROTEIN 6.8 G/DL (5.7-8.2)
== END ==
LOC: SKLAB2 07:06
PROVIDERS: ATTEND Internal Medicine
DX: E78.5 Hyperlipidemia, unspecified (principal)

== ENCOUNTER → 2024-07-22 | Outpatient (CLI) | payer MEDICARE, OTHER | LOC: M PLAIMG 10:21 | PROVIDERS: ATTEND Physical Therapist | DX: L04.1 Acute lymphadenitis of trunk (principal); D35.01 Benign neoplasm of right adrenal gland; D35.02 Benign neoplasm of left adrenal gland; I71.43 Infrarenal abdominal aortic aneurysm, without rupture ==